=== PATIENT | male | born 1940 | race Caucasian/White ===

== ENCOUNTER 2024-03-06 18:27 | Inpatient (IN) | payer MEDICARE, OTHER ==
[~2024-03-06] VITALS: Ht 170.2 cm; Wt 59.4 kg
[2024-03-06 20:00] VITALS: BP 106/84; TEMP 98.2; O2SAT 93
[2024-03-06] MEDS ORDERED: MAG HYDROX/AL HYDROX/SIMETH 30 ML LIQUID UDC PO PRN (20:00)
[2024-03-06] MEDS ORDERED: ACETAMINOPHEN 650 MG SUPP.RECT RC PRN (20:00)
[2024-03-06] MEDS ORDERED: ROSU40TA PO (22:39)
[2024-03-06] MEDS ORDERED: ACET-2030 PO (22:39)
[2024-03-06] MEDS ORDERED: IPRA3AMP22 IH (22:39)
[2024-03-06] MEDS ORDERED: NITR0.4T SL (22:39)
[2024-03-06] MEDS ORDERED: ASPI81TA31 PO (22:39)
[2024-03-06] MEDS ORDERED: AMLO10TA59 PO (22:39)
[2024-03-06] MEDS ORDERED: QUET100T PO (22:39)
[2024-03-06] MEDS ORDERED: DIVA125C2 PO (22:39)
[2024-03-06] MEDS ORDERED: LIDO30AD10 TD (22:39)
[2024-03-06] MEDS ORDERED: LORA0.5T48 PO (22:39)
[2024-03-06] MEDS ORDERED: GUAI100S9 PO (22:39)
[2024-03-06] MEDS ORDERED: SERT50TA PO (22:39)
[2024-03-06] MEDS ORDERED: RIVA3CAP17 PO (22:39)
[2024-03-07] MEDS: LORAZEPAM 1 MG TABLET PO PRN (03:33)
[2024-03-07 07:47] VITALS: BP 136/71; TEMP 98; O2SAT 98
[2024-03-07 09:08] LABS: ALANINE AMINOTRANSFERASE 26 U/L (16-63); ALKALINE PHOSPHATASE 103 U/L (50-136); ASPARTATE AMINOTRANSFERASE 16 U/L (15-37); BILIRUBIN,TOTAL 0.4 mg/dL (0.2-1.0); CALCIUM 9.5 mg/dL (8.5-10.1); CARBON DIOXIDE 27 mmol/L (21-32); CHLORIDE 104 mmol/L (98-107); CREATININE 1.2 mg/dL (0.6-1.3); GLUCOSE 82 mg/dL (74-106); POTASSIUM 4.2 mmol/L (3.5-5.1); SODIUM SERUM 142 mmol/L (136-145); TOTAL PROTEIN, SERUM 7.4 g/dL (6.4-8.2); UREA NITROGEN, BLOOD 24 mg/dL (7-18)
[2024-03-07] MEDS: MAGNESIUM HYDROXIDE 30 ML LIQUID UDC PO PRN (10:14)
[2024-03-07] MEDS ORDERED: GUAI-1189 PO (13:23)
[2024-03-07] MEDS: DIVALPROEX 250 MG TABLET.DR PO SCH (14:00)
[2024-03-07 16:03] VITALS: BP 115/65; TEMP 98.4; O2SAT 100
[2024-03-07 20:00] VITALS: BP 148/71; TEMP 99.5; O2SAT 99
[2024-03-07] MEDS: QUETIAPINE FUMARATE 100 MG TABLET PO SCH (20:34)
[2024-03-07] MEDS: TEMAZEPAM 7.5 MG CAPSULE PO PRN (21:58)
[2024-03-07] MEDS: ACETAMINOPHEN 325 MG TABLET PO PRN (21:58)
[2024-03-08 08:44] VITALS: BP 139/100; TEMP 98; O2SAT 95
[2024-03-08] MEDS: ASPIRIN 81 MG TAB.CHEW PO SCH (09:00)
[2024-03-08] MEDS: LIDOCAINE 5% PATCH TD SCH (09:00)
[2024-03-08] MEDS: AMLODIPINE 10 MG TABLET PO SCH (10:08)
[2024-03-08 15:49] VITALS: BP 112/65; TEMP 98.1; O2SAT 96
[2024-03-08 20:00] VITALS: BP 123/81; TEMP 98.7; O2SAT 95
[2024-03-08] MEDS: ATORVASTATIN 20 MG TABLET PO SCH (20:28)
[2024-03-09 08:44] VITALS: BP 124/83; TEMP 97.9; O2SAT 97
[2024-03-09 16:12] VITALS: BP 135/75; TEMP 98; O2SAT 97
[2024-03-09 20:05] VITALS: BP 126/78; TEMP 98.1; O2SAT 96
[2024-03-10 07:58] VITALS: BP 110/81; TEMP 98.1; O2SAT 96
[2024-03-10 15:54] VITALS: BP 117/85; TEMP 98; O2SAT 96
[2024-03-10] MEDS: DIVALPROEX 250 MG TABLET.DR PO SCH (17:36)
[2024-03-10 20:11] VITALS: BP 112/78; TEMP 98.1; O2SAT 95
[2024-03-10] MEDS: REMEDY ESSENTIAL ZINC PASTE 113 GM TOP PRN (20:40)
[2024-03-11 07:30] VITALS: BP 132/83; TEMP 98; O2SAT 98
[2024-03-11 15:43] VITALS: BP 131/82; TEMP 98.2; O2SAT 97
[2024-03-11 20:15] VITALS: BP 109/53; TEMP 98.1; O2SAT 96
[2024-03-12] MEDS: OLANZAPINE 10 MG VIAL IM ONE (03:03)
[2024-03-12 07:57] VITALS: BP 102/58; TEMP 98; O2SAT 96
[2024-03-12 07:59] LABS: BASOPHILS # (AUTO) 0.1 K/UL (0.0-0.2); BASOPHILS % (AUTO) 0.5 % (0.0-2.0); EOSINOPHILS # (AUTO) 0.4 K/uL (0.0-0.7); EOSINOPHILS % (AUTO) 3.1 % (0.0-7.0); HEMOGLOBIN 10.1 g/dL (12.5-16.3); LYMPHOCYTES % (AUTO) 16.4 % (20.5-51.5); MEAN CORPUSCULAR HEMOGLOBIN 29.6 uug (23.8-33.4); MEAN CORPUSCULAR HGB CONC 33 g/dL (32.5-36.3); MONOCYTES # (AUTO) 1.3 K/uL (0.1-1.30); MONOCYTES % (AUTO) 10.5 % (0.0-11.0); NEUTROPHILS # (AUTO) 8.6 K/uL (1.8-8.9); NEUTROPHILS % (AUTO) 69.5 % (38.5-71.5); PLATELET COUNT (AUTO) 168 K/uL (152-348); RED CELL DISTRIBUTION WIDTH 16.7 % (12.1-16.2); WHITE BLOOD COUNT (AUTO) 12.4 K/uL (3.6-10.2)
[2024-03-12 08:04] LABS: ALANINE AMINOTRANSFERASE 12 U/L (16-63); ALBUMIN 2.8 g/dL (3.4-5.0); ALKALINE PHOSPHATASE 87 U/L (50-136); ASPARTATE AMINOTRANSFERASE 6 U/L (15-37); BILIRUBIN,TOTAL 0.4 mg/dL (0.2-1.0); CALCIUM 9.1 mg/dL (8.5-10.1); CARBON DIOXIDE 29 mmol/L (21-32); CHLORIDE 106 mmol/L (98-107); CREATININE 1.5 mg/dL (0.6-1.3); GLUCOSE 118 mg/dL (74-106); POTASSIUM 3.8 mmol/L (3.5-5.1); SODIUM SERUM 142 mmol/L (136-145); TOTAL PROTEIN, SERUM 7.1 g/dL (6.4-8.2); UREA NITROGEN, BLOOD 49 mg/dL (7-18); VALPROIC ACID 32 ug/mL (50-100)
[2024-03-12 08:06] LABS: DIFFERENTIAL COMMENT 1
[2024-03-12 15:21] VITALS: BP 137/75; TEMP 98.4; O2SAT 98
[2024-03-12] MEDS ORDERED: ACET650S13 RC (16:44)
[2024-03-12] MEDS ORDERED: TEMA7.5C2 PO (16:44)
[2024-03-12] MEDS ORDERED: ACET325T53 PO (16:44)
[2024-03-12] MEDS ORDERED: LORA-259 PO (16:44)
[2024-03-12] MEDS ORDERED: MAGN400O6 PO (16:44)
[2024-03-12] MEDS ORDERED: ATOR20TA PO (16:44)
[2024-03-12] MEDS ORDERED: PETR113P TP (16:44)
[2024-03-12] MEDS ORDERED: MAG355OR18 PO (16:44)
[2024-03-12] MEDS ORDERED: DIVA250T47 PO (16:44)
[2024-03-12] MEDS ORDERED: QUET100T PO (16:44)
== END 2024-03-12 16:24 | disposition short-term general hospital (02) | DRG 885 ==
LOC: GPS 18:27
PROVIDERS: ADMIT Psychiatry & Neurology Psychosomatic Medicine; ATTEND Nurse Practitioner Acute Care
DX: F29 Unspecified psychosis not due to a substance or known physiological condition (principal); N18.9 Chronic kidney disease, unspecified; N17.0 Acute kidney failure with tubular necrosis; F02.811 Dementia in other diseases classified elsewhere, unspecified severity, with agitation; F02.83 Dementia in other diseases classified elsewhere, unspecified severity, with mood disturbance; I12.9 Hypertensive chronic kidney disease with stage 1 through stage 4 chronic kidney disease, or unspecified chronic kidney disease; G20.A1 Parkinson's disease without dyskinesia, without mention of fluctuations; Z88.5 Allergy status to narcotic agent; E78.5 Hyperlipidemia, unspecified; Z79.82 Long term (current) use of aspirin; Z79.899 Other long term (current) drug therapy; S30.0XXA Contusion of lower back and pelvis, initial encounter; X58.XXXA Exposure to other specified factors, initial encounter; Y92.129 Unspecified place in nursing home as the place of occurrence of the external cause; Z86.73 Personal history of transient ischemic attack (TIA), and cerebral infarction without residual deficits; J44.9 Chronic obstructive pulmonary disease, unspecified; I25.10 Atherosclerotic heart disease of native coronary artery without angina pectoris; E86.0 Dehydration; E88.09 Other disorders of plasma-protein metabolism, not elsewhere classified; S51.812A Laceration without foreign body of left forearm, initial encounter; Z91.199 Patient's noncompliance with other medical treatment and regimen due to unspecified reason
CPT/HCPCS: 36415; 80164; 85025; J2358; J3490

== ENCOUNTER 2024-03-12 15:53 | Inpatient (IN) | payer MEDICARE, OTHER ==
[~2024-03-12] VITALS: Ht 157.5 cm; Wt 59.6 kg
[~2024-03-12 15:53] MED LIST: ACET-2030 PO; AMLO10TA59 PO; ASPI81TA31 PO; GUAI-1189 PO; IPRA3AMP22 IH; LIDO30AD10 TD; NITR0.4T SL; ROSU40TA PO
[2024-03-12] MEDS ORDERED: ATOR20TA PO (16:44)
[2024-03-12] MEDS ORDERED: PETR113P TP (16:44)
[2024-03-12] MEDS ORDERED: ACET325T53 PO (16:44)
[2024-03-12] MEDS ORDERED: MAGN400O6 PO (16:44)
[2024-03-12] MEDS ORDERED: LORA-259 PO (16:44)
[2024-03-12] MEDS ORDERED: TEMA7.5C2 PO (16:44)
[2024-03-12] MEDS ORDERED: DIVA250T47 PO (16:44)
[2024-03-12] MEDS ORDERED: ACET650S13 RC (16:44)
[2024-03-12] MEDS ORDERED: QUET100T PO (16:44)
[2024-03-12] MEDS ORDERED: MAG355OR18 PO (16:44)
[2024-03-12 17:00] VITALS: BP 120/54; TEMP 98.4; O2SAT 95
[2024-03-12] MEDS ORDERED: ENOXAPARIN SODIUM 40 MG/0.4 ML DISP.SYRIN SQ SCH (17:30)
[2024-03-12] MEDS ORDERED: ONDANSETRON 4 MG/2 ML VIAL IV PRN (17:30)
[2024-03-12] MEDS ORDERED: REMEDY ESSENTIAL ZINC PASTE 113 GM TP PRN (17:30)
[2024-03-12] MEDS ORDERED: MAGNESIUM HYDROXIDE 30 ML LIQUID UDC PO PRN (17:30)
[2024-03-12] MEDS ORDERED: HOME MED MISCELLANEOUS XX SCH (17:45)
[2024-03-12] MEDS: IV NS 1000 ML 1,000 ML IV PRN (18:22)
[2024-03-12 20:00] VITALS: BP 114/78; TEMP 97.7; O2SAT 97
[2024-03-12] MEDS: QUETIAPINE FUMARATE 100 MG TABLET PO SCH (21:46)
[2024-03-12] MEDS: ATORVASTATIN 20 MG TABLET PO SCH (21:46)
[2024-03-12] MEDS: ENOXAPARIN SODIUM 30 MG/0.3 ML DISP.SYRIN SUBCUT SCH (21:48)
[2024-03-13 04:00] VITALS: BP 106/46; TEMP 97.5; O2SAT 98
[2024-03-13] MEDS: PANTOPRAZOLE SODIUM 40 MG TABLET.DR PO SCH (06:25)
[2024-03-13 07:01] LABS: BASOPHILS # (AUTO) 0.1 K/UL (0.0-0.2); BASOPHILS % (AUTO) 0.7 % (0.0-2.0); EOSINOPHILS # (AUTO) 0.6 K/uL (0.0-0.7); EOSINOPHILS % (AUTO) 5.2 % (0.0-7.0); HEMATOCRIT 30.3 % (36.7-47.1); HEMOGLOBIN 9.8 g/dL (12.5-16.3); LYMPHOCYTES # (AUTO) 1.8 K/uL (0.8-4.8); LYMPHOCYTES % (AUTO) 15.7 % (20.5-51.5); MEAN CORPUSCULAR HEMOGLOBIN 29.5 uug (23.8-33.4); MEAN CORPUSCULAR HGB CONC 32 g/dL (32.5-36.3); MEAN CORPUSCULAR VOLUME 91.2 fL (73.0-96.2); MONOCYTES % (AUTO) 8.8 % (0.0-11.0); NEUTROPHILS # (AUTO) 8.1 K/uL (1.8-8.9); NEUTROPHILS % (AUTO) 69.6 % (38.5-71.5); PLATELET COUNT (AUTO) 158 K/uL (152-348); RED BLOOD CELL COUNT(AUTO) 3.32 MIL/uL (4.06-5.63); RED CELL DISTRIBUTION WIDTH 16.9 % (12.1-16.2); WHITE BLOOD COUNT (AUTO) 11.6 K/uL (3.6-10.2)
[2024-03-13 07:09] LABS: DIFFERENTIAL COMMENT 1
[2024-03-13 07:21] LABS: CALCIUM 9.1 mg/dL (8.5-10.1); CARBON DIOXIDE 26 mmol/L (21-32); CHLORIDE 110 mmol/L (98-107); CREATININE 1.4 mg/dL (0.6-1.3); GLUCOSE 81 mg/dL (74-106); MAGNESIUM 2.4 mg/dL (1.8-2.4); PHOSPHOROUS 3.7 mg/dL (2.5-4.9); SODIUM SERUM 145 mmol/L (136-145); UREA NITROGEN, BLOOD 50 mg/dL (7-18)
[2024-03-13] MEDS: ASPIRIN 81 MG TAB.CHEW PO SCH (09:43)
[2024-03-13] MEDS: DIVALPROEX ER 250 MG TAB.SR.24H PO SCH (09:43)
[2024-03-13] MEDS: AMLODIPINE 10 MG TABLET PO SCH (09:43)
[2024-03-13] MEDS: LIDOCAINE 5% PATCH TD SCH (09:44)
[2024-03-13 12:00] VITALS: BP 100/56; TEMP 98; O2SAT 96
[2024-03-13 15:23] LABS: *BILIRUBIN,URIN NEGATIVE (NEGATIVE); *BLOOD, URINE NEGATIVE (NEGATIVE); *CLARITY,URINE CLEAR (CLEAR); *COLOR,URINE YELLOW (YELLOW); *KETONES,URINE NEGATIVE (NEGATIVE); *PROTEIN,URINE 1+ (NEGATIVE); *UROBILINOGEN,URINE 0.2 E.U./dl (NORMAL); LEUKOCYTE ESTERASE ,URINE NEGATIVE (NEGATIVE); NITRITE, URINE NEGATIVE (NEGATIVE); PH,URINE 5.5 (5.0-8.0); UGLUCOSE NEGATIVE (NEGATIVE)
[2024-03-13 15:34] LABS: RBC,URINE NONE SEEN /HPF (0-3); WBC,URINE 0-3 /HPF (0-3)
[2024-03-13 15:35] LABS: BACTERIA,URINE NONE SEEN /HPF (NONE SEEN); SQUAMOUS EPITHELIAL CELL,UR FEW /HPF (NONE SEEN)
[2024-03-13 16:00] VITALS: BP 105/68; TEMP 96.4; O2SAT 96
[2024-03-13 20:00] VITALS: BP 129/63; TEMP 98.3; O2SAT 94
[2024-03-13] MEDS: LORAZEPAM 1 MG TABLET PO PRN (21:33)
[2024-03-13] MEDS: ACETAMINOPHEN 325 MG TABLET PO PRN (21:37)
[2024-03-14 07:05] VITALS: BP 104/55; TEMP 98.6; O2SAT 94
[2024-03-14 07:29] LABS: BASOPHILS # (AUTO) 0.1 K/UL (0.0-0.2); BASOPHILS % (AUTO) 0.7 % (0.0-2.0); EOSINOPHILS % (AUTO) 11.1 % (0.0-7.0); HEMATOCRIT 25.9 % (36.7-47.1); HEMOGLOBIN 8.4 g/dL (12.5-16.3); MEAN CORPUSCULAR HEMOGLOBIN 29.8 uug (23.8-33.4); MEAN CORPUSCULAR HGB CONC 33 g/dL (32.5-36.3); MEAN CORPUSCULAR VOLUME 91.4 fL (73.0-96.2); MONOCYTES # (AUTO) 0.8 K/uL (0.1-1.30); MONOCYTES % (AUTO) 8.9 % (0.0-11.0); NEUTROPHILS # (AUTO) 4.9 K/uL (1.8-8.9); NEUTROPHILS % (AUTO) 56.3 % (38.5-71.5); PLATELET COUNT (AUTO) 155 K/uL (152-348); RED BLOOD CELL COUNT(AUTO) 2.83 MIL/uL (4.06-5.63); RED CELL DISTRIBUTION WIDTH 16.9 % (12.1-16.2); WHITE BLOOD COUNT (AUTO) 8.7 K/uL (3.6-10.2)
[2024-03-14 07:33] LABS: DIFFERENTIAL COMMENT 1
[2024-03-14 07:49] LABS: BILIRUBIN,TOTAL 0.3 mg/dL (0.2-1.0); CALCIUM 8.5 mg/dL (8.5-10.1); CREATININE 1.1 mg/dL (0.6-1.3); MAGNESIUM 2.2 mg/dL (1.8-2.4); POTASSIUM 3.8 mmol/L (3.5-5.1); TOTAL PROTEIN, SERUM 5.6 g/dL (6.4-8.2)
[2024-03-14 11:50] VITALS: BP 123/75; TEMP 97.9; O2SAT 97
[2024-03-14] MEDS: OLANZAPINE 10 MG VIAL IM ONE (16:18)
[2024-03-14 16:23] VITALS: BP 125/53; TEMP 98.2; O2SAT 95
[2024-03-14] MEDS: DIVALPROEX 250 MG TABLET.DR PO SCH (16:28)
[2024-03-14] MEDS: OLANZAPINE 2.5 MG TABLET PO SCH (20:36)
[2024-03-14 20:52] VITALS: BP 121/68; TEMP 97.6; O2SAT 95
[2024-03-14] MEDS: TEMAZEPAM 15 MG CAPSULE PO PRN (23:52)
[2024-03-15 06:20] VITALS: BP 134/78; TEMP 98.6; O2SAT 95
[2024-03-15 07:06] LABS: PTH, INTACT 25 pg/mL (15-65)
[2024-03-15 07:10] LABS: CALCIUM 8.7 mg/dL (8.5-10.1); CARBON DIOXIDE 25 mmol/L (21-32); CHLORIDE 110 mmol/L (98-107); GLUCOSE 86 mg/dL (74-106); POTASSIUM 3.8 mmol/L (3.5-5.1); SODIUM SERUM 143 mmol/L (136-145); UREA NITROGEN, BLOOD 23 mg/dL (7-18)
[2024-03-15 08:16] LABS: VALPROIC ACID 51 ug/mL (50-100)
[2024-03-15 10:45] VITALS: BP 118/60; TEMP 98.2; O2SAT 95
[2024-03-15 12:02] VITALS: BP 122/63; TEMP 97.9; O2SAT 95
[2024-03-15] MEDS: OLANZAPINE 10 MG VIAL IM ONE (14:37)
[2024-03-15 16:17] VITALS: BP 130/41; TEMP 97.6; O2SAT 93
[2024-03-15 20:12] VITALS: BP 130/73; TEMP 98.4; O2SAT 94
[2024-03-16 04:20] VITALS: BP 109/69; TEMP 98.4; O2SAT 93
[2024-03-16 08:00] VITALS: BP 101/66; TEMP 98; O2SAT 94
[2024-03-16 12:00] VITALS: BP 117/76; TEMP 97.2; O2SAT 97
[2024-03-16] MEDS: OLANZAPINE 10 MG VIAL IM ONE (13:44)
[2024-03-16 15:49] VITALS: BP 123/77; TEMP 97.8; O2SAT 97
[2024-03-16 20:00] VITALS: BP 144/102; TEMP 97.9; O2SAT 92
[2024-03-16] MEDS: LORAZEPAM 2 MG/1 ML VIAL IV PRN (21:10)
[2024-03-17 06:00] VITALS: BP 136/81; TEMP 98; O2SAT 97
[2024-03-17 09:08] LABS: A/G RATIO 0.8 (0.7-1.7); ALBUMIN 2.2 g/dL (2.9-4.4); ALPHA-1-GLOBULIN 0.3 g/dL (0.0-0.4); ALPHA-2-GLOBULIN 0.9 g/dL (0.4-1.0); BETA GLOBULIN 0.9 g/dL (0.7-1.3); GAMMA GLOBULIN 0.8 g/dL (0.4-1.8); GLOBULIN, TOTAL 2.8 g/dL (2.2-3.9); M-SPIKE Not Observed g/dL (Not Observed)
[2024-03-17 11:49] VITALS: BP 144/69; TEMP 97.6; O2SAT 98
[2024-03-17 15:45] VITALS: BP 143/63; TEMP 97.9; O2SAT 98
[2024-03-17 20:00] VITALS: BP 100/58; TEMP 98.4; O2SAT 97
[2024-03-17] MEDS: DIVALPROEX SPRINKLE 125 MG CAP.SPRINK PO SCH (21:19)
[2024-03-18] MEDS: DIVALPROEX SPRINKLE 125 MG CAP.SPRINK PO SCH (08:12)
[2024-03-18] MEDS ORDERED: ATOR20TA PO (10:19)
[2024-03-18] MEDS ORDERED: MAGN400O6 PO (10:19)
[2024-03-18] MEDS ORDERED: DIVA125C2 PO ×2 (10:19)
[2024-03-18] MEDS ORDERED: OLAN2.5T27 PO (10:19)
[2024-03-18] MEDS ORDERED: LIDO30AD10 TD (10:19)
[2024-03-18] MEDS ORDERED: AMLO10TA59 PO (10:19)
[2024-03-18] MEDS ORDERED: ASPI81TA31 PO (10:19)
[2024-03-18] MEDS ORDERED: PANT40TA49 PO (10:19)
[2024-03-18 12:03] VITALS: BP 126/51; TEMP 97.8; O2SAT 97
[2024-03-18 16:52] VITALS: BP 129/75; TEMP 98.3; O2SAT 97
[2024-03-18 23:53] VITALS: BP 134/84; TEMP 97.9; O2SAT 93
[2024-03-19 06:00] VITALS: BP 98/57; TEMP 97.8; O2SAT 92
[2024-03-19 08:00] VITALS: BP 126/69; TEMP 95.3; O2SAT 96
[2024-03-19 11:50] VITALS: BP 141/74; TEMP 97.2; O2SAT 100
[2024-03-19 15:53] VITALS: BP 121/56; TEMP 97.3; O2SAT 99
[2024-03-19 20:25] VITALS: BP 142/75; TEMP 98.6; O2SAT 94
[2024-03-20 06:20] VITALS: BP 144/75; TEMP 98.8; O2SAT 96
[2024-03-20 09:02] VITALS: BP 148/85
== END 2024-03-20 10:00 | DRG 682 ==
LOC: MEDSURG3 15:53
PROVIDERS: ADMIT Nurse Practitioner Acute Care; ATTEND Nurse Practitioner Acute Care
DX: N17.0 Acute kidney failure with tubular necrosis (principal); G93.41 Metabolic encephalopathy; E44.0 Moderate protein-calorie malnutrition; F02.811 Dementia in other diseases classified elsewhere, unspecified severity, with agitation; F02.83 Dementia in other diseases classified elsewhere, unspecified severity, with mood disturbance; F02.84 Dementia in other diseases classified elsewhere, unspecified severity, with anxiety; F05 Delirium due to known physiological condition; E86.0 Dehydration; E86.9 Volume depletion, unspecified; R62.7 Adult failure to thrive; Z68.24 Body mass index [BMI] 24.0-24.9, adult; J44.9 Chronic obstructive pulmonary disease, unspecified; N18.9 Chronic kidney disease, unspecified; I13.10 Hypertensive heart and chronic kidney disease without heart failure, with stage 1 through stage 4 chronic kidney disease, or unspecified chronic kidney disease; I25.10 Atherosclerotic heart disease of native coronary artery without angina pectoris; E78.5 Hyperlipidemia, unspecified; E88.09 Other disorders of plasma-protein metabolism, not elsewhere classified; Z86.73 Personal history of transient ischemic attack (TIA), and cerebral infarction without residual deficits; D63.8 Anemia in other chronic diseases classified elsewhere; G20.A1 Parkinson's disease without dyskinesia, without mention of fluctuations; Z91.199 Patient's noncompliance with other medical treatment and regimen due to unspecified reason; Z66 Do not resuscitate
CPT/HCPCS: 36415; 70450; 71045; 76770; 80164; 83735; 83921; 83970; 84100; 84155; 84165; 84443; 85025; A6209; A6213; C1758; G0378; J1650; J2060; J2358; J3490; J7040